=== PATIENT | female | born 1970 | race African-American/Black ===

== ENCOUNTER 2020-10-12 05:24 | Emergency (ER) | payer OTHER ==
[2020-10-12] MEDS ORDERED: IBUPROFEN 400 MG TABLET (FP) PO ONE ×2 (05:38→05:41)
[2020-10-12 06:08] VITALS: BP 127/80; PULSE 88; TEMP 98.8; BMI 36.0
== END 2020-10-12 06:15 | disposition home or self-care (01) ==
LOC: JER 05:24
DX: M25.561 Pain in right knee (principal); M25.562 Pain in left knee; S60.222A Contusion of left hand, initial encounter
CPT/HCPCS: 99283-25